=== PATIENT | male | born 1985 | race Caucasian/White ===

== ENCOUNTER 2020-01-13 00:46 | Observation (INO) | payer SELFPAY ==
[~2020-01-13] VITALS: Ht 203.2 cm; Wt 136.3 kg
[~2020-01-13 00:46] MED LIST: AUGMENTIN PO; BACTRIM DS 8001 TAB PO; CIPRO 500MG TA500 MG PO; NO HOME MEDICATIONS; NO MEDS; NORCO 325 MG-7.1 TAB PO; NORCO PO; PERCOCET 325 MG1 TA2 PO; PREDNISONE10 MG PO; PYRIDIUM200 M1 PO; VICODIN 5/5001 UDTAB PO
[2020-01-13 01:44] LABS: BASO % 0.5 % (0.0-2.0); EOS # 0.1 (0.0-0.7); EOS % 1.1 % (0-4.0); GRAN # 5.6 (1.4-6.5); GRAN % 63.4 % (42.2-75.2); HEMATOCRIT 42.6 % (42.0-52.0); HEMOGLOBIN 13.4 g/dl (13.5-18.0); LYMPH # 2.3 (1.2-3.4); LYMPH % 26.5 % (20.0-51.0); MEAN CELL VOLUME 88 fl (80.0-100.0); MEAN CORPUSCULAR HEMOGLOBIN 28 pg (27.0-31.0); MEAN CORPUSCULAR HGB CONC 32 g/dl (33.0-37.0); MEAN PLATELET VOLUME 10.3 fl (7.4-10.4); MONO # 0.7 (0.1-0.6); MONO % 8.3 % (1.7-9.3); PLATELET COUNT 213 K/mm3 (130-400); RED BLOOD COUNT 4.85 M/mm3 (4.20-5.60); REDCELL DISTRIBUTION WIDTH-CV 13.8 % (11.5-14.5)
[2020-01-13 01:51] LABS: ALBUMIN 4.5 gm/dL (3.5-5.0); BILIRUBIN,TOTAL 0.6 mg/dL (0.0-1.0); CALCIUM 9.8 mg/dL (8.4-10.2); CREATININE, serum 1.01 (0.66-1.25); MAGNESIUM 2.4 mg/dL (1.6-2.3)
[2020-01-13 02:34] LABS: COLLECTION METHOD CLEAN CATCH
[2020-01-13 03:04] LABS: MUCOUS Present /lpf; PH 5 (5-8); SQUAMOUS EPITHELIAL 0-2 /hpf; URINE APPEARANCE Clear; URINE BACTERIA None Seen /hpf; URINE BILIRUBIN Negative (NEGATIVE); URINE BLOOD Negative (NEGATIVE); URINE COLOR Yellow; URINE GLUCOSE Negative (NEGATIVE); URINE KETONE Negative (NEGATIVE); URINE LEUKOCYTE ESTERASE Negative (NEGATIVE); URINE NITRATE Negative (NEGATIVE); URINE PROTEIN(semi-quant) Negative (NEGATIVE); URINE RBC 0-2 /hpf
--- NOTE | 2020-01-13 05:24 | NUR ---
Pt. arrived to the floor via wheelchair. Pt. is able to ambulate to the chair independently. Pt. is A&OX3, assessment complete. INT to rt. ac patent. Pt. reports pain at a 4 on pain scale, denies need for pain medication. Pt. denies further needs.
[2020-01-13 05:46] VITALS: BP 114/61; PULSE 62; TEMP 97.8
--- NOTE | 2020-01-13 08:00 | NUR ---
PATIENT IS VERY DROWSY. ARROUSES TO REPEATED VERBAL STIMULI. PATIENT SLEEPING IN BEDSIDE CHAIR. ORIENTED X3. REPORTS PAIN IS MANAGED. VSS. TELE INPLACE. STUDENT NURSE WORKING WITH PATIENT TODAY, SEE STUDENT NOTES. NO OTHER NEEDS. CALL LIGHT IN REACH.
[2020-01-13 08:19] VITALS: BP 126/60; PULSE 54; TEMP 97.6
[2020-01-13] MEDS ORDERED: NORCO 325 MG-51 TAB PO (09:05)
[2020-01-13] MEDS ORDERED: BLUE-EMU LIDOC1 EACH TP (09:06)
[2020-01-13] MEDS ORDERED: NEURONTIN100 MG/CAP PO (09:07)
--- NOTE | 2020-01-13 09:26 | NUR ---
MARCIAL met with the patient to discuss discharge plan. The patient appeared sleepy and would fall asleep periodically during intake. The patient lives alone in [place]. He reports independence with ADLs and does not have any DME. The patient does not have a PCP. He states that he may be interested in getting set up with a provider. The patient confirms that he is self pay. MARCIAL discussed [facility] and [facility]. The patient states that he would be interested in getting set up at [facility] in [place]. MARCIAL contacted [facility] and secured the patient an appointment on Thursday, 01/24, at 1100. MARCIAL notified the community planner and patient of the appointment. MARCIAL provided the patient with [facility]'s registration packet. MARCIAL faxed the patient's records to [facility]. The patient receives his medications at [facility] and he reports no difficulties obtaining his meds. The patient does not have advanced directives. The patient states that he is not and does not have any adult children. He states that his next of kin is his father, Ed (ph#[phone]). The patient plans to return home upon discharge. No additional needs at this time.
[2020-01-13 12:17] VITALS: BP 111/60; PULSE 65; TEMP 97.7
[2020-01-13 14:32] LABS: BASO % 0.3 % (0.0-2.0); EOS # 0.1 (0.0-0.7); GRAN # 3.5 (1.4-6.5); GRAN % 53.5 % (42.2-75.2); HEMATOCRIT 41.3 % (42.0-52.0); LYMPH # 2.2 (1.2-3.4); LYMPH % 33.1 % (20.0-51.0); MEAN CELL VOLUME 89 fl (80.0-100.0); MEAN CORPUSCULAR HEMOGLOBIN 28 pg (27.0-31.0); MEAN CORPUSCULAR HGB CONC 32 g/dl (33.0-37.0); MONO # 0.7 (0.1-0.6); MONO % 10.9 % (1.7-9.3); PLATELET COUNT 155 K/mm3 (130-400); RED BLOOD COUNT 4.63 M/mm3 (4.20-5.60)
[2020-01-13 15:35] LABS: CALCIUM 8.7 mg/dL (8.4-10.2); CREATININE, serum 0.74 (0.66-1.25); POTASSIUM 4.1 mmol/L (3.4-5.0)
[2020-01-13 16:29] VITALS: BP 113/65; PULSE 60; TEMP 97.8
--- NOTE | 2020-01-13 21:00 | NUR ---
PT UP IN CHAIR AT BEDSIDE. IS DROWSY, ORIENTED X4. FLUSHED SL TO RIGHT AC, NO PROBLEMS. ENCOURAGED PT TO ELEVATE HIS LEGS TO DECREASE DEPENDENT EDEMA. NO COMPLAINTS OF PAIN AT THIS TIME.
[2020-01-13 21:52] VITALS: BP 112/64; PULSE 55; TEMP 98.3
--- NOTE | 2020-01-13 22:06 | NUR ---
DR REYNOSO CALLED TO CHECK ON PATIENT, HE ORDERED LABS FOR AM AND WILL LIKELY DISCHARGE TOMORROW.
[2020-01-14 00:19] VITALS: BP 111/66; PULSE 48; TEMP 97.9
[2020-01-14 03:31] VITALS: BP 114/57; PULSE 48; TEMP 98.5
--- NOTE | 2020-01-14 05:00 | NUR ---
PT IN BED. DENIES NEEDS. LABS DRAWN FROM RIGHT SL.
[2020-01-14 07:00] LABS: BASO % 0.5 % (0.0-2.0); EOS # 0.1 (0.0-0.7); EOS % 1.2 % (0-4.0); GRAN # 5.1 (1.4-6.5); GRAN % 65.3 % (42.2-75.2); HEMATOCRIT 40.8 % (42.0-52.0); HEMOGLOBIN 12.8 g/dl (13.5-18.0); LYMPH % 25.7 % (20.0-51.0); MEAN CELL VOLUME 89 fl (80.0-100.0); MEAN CORPUSCULAR HEMOGLOBIN 28 pg (27.0-31.0); MEAN CORPUSCULAR HGB CONC 31 g/dl (33.0-37.0); MEAN PLATELET VOLUME 10.8 fl (7.4-10.4); MONO # 0.6 (0.1-0.6); MONO % 7.2 % (1.7-9.3); PLATELET COUNT 198 K/mm3 (130-400); RED BLOOD COUNT 4.57 M/mm3 (4.20-5.60); REDCELL DISTRIBUTION WIDTH-CV 13.9 % (11.5-14.5)
[2020-01-14 07:14] LABS: CALCIUM 8.8 mg/dL (8.4-10.2); CREATININE, serum 0.76 (0.66-1.25)
[2020-01-14 07:33] VITALS: BP 104/47; PULSE 52; TEMP 98.7
--- NOTE | 2020-01-14 11:31 | NUR ---
discharge orders reviewed with the patient, instructed on lifting/activity restrctions for 2x weeks, instructed to follow up as we have scheduled for him, discussed new meds and scripts for [place]/neurotin/lidocaine provided, IV removed, patient leaving with his father, he is ambulatory and I escorted him out the door
== END 2020-01-14 11:34 | disposition home or self-care (01) ==
LOC: COL.ER 00:46 → SURG 04:01
PROVIDERS: Emergency Medicine; ADMIT Surgery
DX: S22.42XA Multiple fractures of ribs, left side, initial encounter for closed fracture (principal); S42.112A Displaced fracture of body of scapula, left shoulder, initial encounter for closed fracture; V19.9XXA Pedal cyclist (driver) (passenger) injured in unspecified traffic accident, initial encounter; F17.210 Nicotine dependence, cigarettes, uncomplicated; Z90.81 Acquired absence of spleen
CPT/HCPCS: A9284; G0378; J1170; J7030; Q9967

== ENCOUNTER 2023-08-28 20:38 | Emergency (ER) | payer SELFPAY ==
[~2023-08-28] VITALS: Ht 190.5 cm; Wt 159.1 kg
[~2023-08-28 20:38] MED LIST changes: +BLUE-EMU LIDOC1 EACH TP; +DOXYCYCLINE HY100 MG PO; +NEURONTIN100 MG/CAP PO; +NORCO 325 MG-51 TAB PO
[2023-08-28 20:44] VITALS: TEMP 99.5
[2023-08-28] MEDS ORDERED: CEPHALEXIN500 M1 PO (22:39)
[2023-08-28] MEDS ORDERED: Cephalexin 500 MG CAP PO ONE (22:45)
[2023-08-28 23:07] VITALS: BP 121/78; PULSE 81
== END 2023-08-28 23:09 | disposition home or self-care (01) ==
LOC: COL.ER 20:38
DX: L03.116 Cellulitis of left lower limb (principal); F17.200 Nicotine dependence, unspecified, uncomplicated